=== PATIENT | female | born 1940 | race Caucasian/White ===

== ENCOUNTER → 2018-10-10 | Outpatient (REF) | payer MEDICARE, OTHER ==
[~2018-10-10] MED LIST: ALTACE5 MG PO; CEFUROXIME250 MG PO; CENTRUM PO; CENTRUM SILVER PO; CINNAMON PO; CINNAMON500 M1 PO; FISH OI1 PO; FISH OIL; HEMP OIL PO; HUMALOG100 MG/ML; ISOSORB MONO20 M1 PO; LANTUS100 MG/ML SC; LEVAQUIN500 MG PO; LEVOTHYROXIN100 MCG PO; LORTAB 7.57.5 MG PO; METFORMIN HCL1000 MG PO; METFORMIN500 MG PO; METOPROL TAR25 MG PO; METOPROL TAR50 MG PO; MULTI VIT PO; PAROXETINE10 MG PO; PREDNISONE20 MG PO; PRILOSEC20 MG/CAP PO; PRILOSEC40 MG PO; ROBITUSSIN AC10 ML PO; SIMVASTATIN40 MG PO; SYNTHROID125 MCG PO; ZOCOR PO
[2018-10-10 08:34] LABS: HEMATOCRIT 33.7 % (37.0-47.0); MEAN CELL VOLUME 86.6 fL CALC (80.0-100.0); MEAN CORPUSCULAR HGB 28.3 pG CALC (26.0-32.0); MEAN CORPUSCULAR HGB CONC 32.6 g/L CALC (32.0-36.0); RED BLOOD COUNT 3.89 mill/uL (4.20-5.60); RED CELL DISTRI WIDTH 13.2 % (11.5-15.5)
[2018-10-10 09:00] LABS: ALBUMIN 3.7 g/dL (3.2-5.0); ALKALINE PHOSPHATASE 68 u/l (38-126); ANION GAP 11 (6-22 (CALC)); BILIRUBIN, TOTAL 0.4 mg/dL (0.0-1.4); BUN 19 mg/dL (8-23); BUN/CREATININE RATIO 19 (12-20 (CALC)); CALCULATED LDLCHOLESTEROL 88 mg/dL (62-129 (CALC)); CARBON DIOXIDE 26 mmol/l (22-30); CHLORIDE 105 mmol/l (95-108); CHOLESTEROL HDL RATIO 2.9 (<4.4 (CALC)); GFR 53 ML/MIN (>=60 (CALC)); GFR FOR AFR.AMER. > 60 ML/MIN (>=60 (CALC)); HDL CHOLESTEROL 57 mg/dL (>=40); POTASSIUM 4.1 mmol/l (3.5-5.1); SGOT/AST 23 u/l (9-36); SODIUM 138 mmol/l (137-146); TOTAL CHOLESTEROL 163 mg/dl (0-199); TOTAL PROTEIN 5.8 g/dL (6.3-8.2); TOTAL TRIGLYCERIDES 89 mg/dl (30-149); VLDL CHOLESTROL 18 mg/dl (0-48 (CALC))
== END | disposition home or self-care (01) ==
LOC: LAB 07:36
PROVIDERS: ATTEND Internal Medicine
DX: E11.649 Type 2 diabetes mellitus with hypoglycemia without coma (principal); E11.9 Type 2 diabetes mellitus without complications